=== PATIENT | male | born 2005 | race Two or more races ===

== ENCOUNTER 2024-03-07 15:16 | Emergency (ER) | payer OTHER ==
[~2024-03-07] VITALS: Ht 170.2 cm; Wt 58.1 kg
== END 2024-03-07 16:45 | disposition home or self-care (01) ==
LOC: EMR PED 15:16
DX: S09.8XXA Other specified injuries of head, initial encounter (principal); W18.39XA Other fall on same level, initial encounter; Y93.89 Activity, other specified; Y92.89 Other specified places as the place of occurrence of the external cause

== ENCOUNTER → 2024-03-07 | Emergency (ER) | payer OTHER | END | disposition home or self-care (01) | LOC: EMR PED 00:30 | DX: S09.8XXA Other specified injuries of head, initial encounter (principal); W18.39XA Other fall on same level, initial encounter; Y93.89 Activity, other specified; Y92.89 Other specified places as the place of occurrence of the external cause ==